=== PATIENT | male | born 1990 | race Caucasian/White ===

== ENCOUNTER 2022-09-01 08:04 | Emergency (ER) | payer MEDICAID, SELFPAY ==
[2022-09-01 08:08] VITALS: BP 145/89; PULSE 83; RESP 14; TEMP 36.7; O2SAT 96
--- NOTE | 2022-09-01 08:28 | ED.GENADUL_ITS ---
Discharge Plan Disposition Patient Disposition: Home Discharge Details Clinical Impression: Herpes zoster conjunctivitis, left eye Primary Care Provider: Marek Woodruff ED Provider: Marek Kowalski Home Meds and New Rx's Prescriptions: Continued prednisone 20 mg Tablet 40 mg PO DAILY Rx Instructions: 5 days acyclovir 800 mg Tablet 800 mg PO DIRECTED Rx Instructions: 5x/day for 7 days amoxicillin 875 mg Tablet 875 mg PO BID Rx Instructions: 10 days Deep Sea Nasal 0.65 % Aerosol,Banner 1 spray INTRANASAL BID PRN mirtazapine 30 mg Tablet 30 mg PO DAILY ibuprofen 200 mg Tablet 600 mg PO BID PRN acetaminophen 325 mg Tablet 650 mg PO BID PRN methadone 10 mg/mL Syringe 150 mg PO DAILY Discharge Instructions Instructions: Shingles (ED) Additional Instructions: You are seen in the emergency department for your shingles infection. Please continue taking your medications as previously prescribed. An frame runner will call you in the morning to arrange for follow-up. You will need to be seen in the morning by [facility] for your zoster infection. Please return to the emergency department if you develop worsening pain or any fevers. Discharge Data Discharge Date/Time-TO BE ENTERED AT DEPARTURE: 09/01/22 09:24 Medical Decision Making This is an uncomfortable appearing but normothermic and not tachycardic 32-year-old male with left-sided facial zoster infection in a V1 distribution with ipsilateral left eye conjunctivitis. Patient is on appropriate outpatient therapy with acyclovir and prednisone. We will have health community services coordinator Gloria arrange for [facility] eye follow-up appointment in the morning. Patient has no Zelaya's sign to suggest ocular involvement and no clearly dendritic lesions. Patient has no history of immunocompromise and specifically denies history of HIV and AIDS suspicion for [place] Monreal syndrome is exceedingly low. Given no fevers no rash also I am not concerned for disseminated zoster. It certainly possible that the patient go on to develop herpes zoster ophthalmicus. Given pain with itching will treat with diphenhydramine and also single dose opiate with acetaminophen. Patient vitals are not consistent with SIRS criteria so did not order blood work nor check a lactate nor draw blood cultures. No vomiting nor diarrhea to suggest increased risk for acute intra-abdominal process. As result I do not feel that the patient requires laboratory evaluation. HPI General Date/Time Provider Initiated Documentation: 09/01/22 08:28 . HPI Narrative: This is a previously healthy incarcerated 32-year-old male with prior history of shingles arriving to the emergency department in setting of shingles involving the left side of his face. Patient notes that 1 week ago he had a headache. 3 days ago he felt as if he had a zit on his forehead and he popped it but it drained clear fluid. 2 days ago a nurse at his correctional facility started him on treatment for shingles with acyclovir and prednisone. Patient reports that he has had difficulty opening his left eye and painful burning sensation in his left eye this morning. He has been adherent with his acyclovir and prednisone. He also took acetaminophen this morning. He denies any history of immunocompromise any specifically denies HIV and AIDS. He does not wear contacts or glasses. He has not had any fevers nor any changes in his hearing. He denies chest pain abdominal pain dysuria and frequency. Related Data Home Medications Medication Instructions Recorded Confirmed acetaminophen 325 mg tablet 650 mg PO BID PRN 09/01/22 09/01/22 acyclovir 800 mg tablet 800 mg PO DIRECTED 09/01/22 09/01/22 amoxicillin 875 mg tablet 875 mg PO BID 09/01/22 09/01/22 ibuprofen 200 mg tablet 600 mg PO BID PRN 09/01/22 09/01/22 methadone 10 mg/mL oral syringe 150 mg PO DAILY 09/01/22 09/01/22 (FOR ORAL USE ONLY) mirtazapine 30 mg tablet 30 mg PO DAILY 09/01/22 09/01/22 prednisone 20 mg tablet 40 mg PO DAILY 09/01/22 09/01/22 sodium chloride 0.65 % nasal spray 1 spray intranasal BID PRN 09/01/22 09/01/22 aerosol (Deep Sea Nasal) Allergies Allergy/AdvReac Type Severity Reaction Status Date / Time No Known Allergies Allergy Unverified 09/01/22 08:18 General Stated Complaint: RashLesion CHERRI: 4 PFSH All Active Problems (Updated 09/01/22 @ 08:42 by Marek Kowalski MD) Herpes zoster conjunctivitis, left eye (Acute) Social History Smoking/Tobacco Use Status: Current every day Smoking risk assessment performed?: Yes Drug use: Never Exam Narrative Exam Narrative: General: Well-appearing in no acute distress speaking in complete sentences. Head: Normocephalic, atraumatic. Eye: Pupils equal, round reactive to light. Left eye with conjunctivitis. No afferent pupillary defect. Extraocular movements intact. Ear, nose, mouth, throat: Vesicular lesion primarily on the superior aspect of the left eyelid forehead and in V1 distribution. No Zelaya sign. No signs of [place] Monreal patient no vesicles within the external ear canal nor on the auricle. No intraoral lesions. On fluorescein stain exam patient had no signs of peritonitis and no due to dendrites. Neck: Trachea midline. Cardiovascular: Well-perfused distal extremities. Respiratory: Nonlabored respiration. Gastrointestinal: Nondistended abdomen. Musculoskeletal: No edema. Moving all 4 extremities spontaneously. Skin: Normal for age and race, grossly normal temperature and turgor. No acute rash. Neurologic: Alert and appropriate, no apparent acute deficits. Psychiatric: Mood and manner are appropriate. Grooming and personal hygiene are appropriate. Course Vital Signs Vital signs: Vital Signs Temperature 36.7 C 09/01/22 08:08 Pulse 83 09/01/22 08:08 Respiratory Rate 09/01/22 08:08 Blood Pressure 145/89 H 09/01/22 08:08 Pulse Oximetry 96 09/01/22 08:08 Temperature 36.7 C 09/01/22 08:08 Temperature Source Tympanic 09/01/22 08:08 Pulse 83 09/01/22 08:08 Respiratory Rate 14 09/01/22 08:08 Respiratory Effort Normal 09/01/22 08:14 Blood Pressure 145/89 H 09/01/22 08:08 Blood Pressure Position Sitting 09/01/22 08:08 Pulse Oximetry 96 09/01/22 08:08 Oxygen Delivery Method Room Air 09/01/22 08:08 Oxygen Flow Rate 0 09/01/22 08:08 Pain Level 10 09/01/22 08:08
[2022-09-01] MEDS: diphenhydrAMINE 25 MG CAP PO (08:56)
[2022-09-01] MEDS: Acetaminophen 500 MG TAB 1000 MG PO (08:56)
[2022-09-01] MEDS: oxyCODONE 5 MG TAB PO (08:57)
[2022-09-01] MEDS: Fluorescein STRIPS 100/BOX 1 MG OP (08:57)
[2022-09-01] MEDS: Tetracaine 0.5% 4 ML BTL (08:57)
--- NOTE | 2022-09-01 09:11 | NUR.NOTE ---
Nursing Note: Referral faxed to [facility] [place] [facility] for herpes zoster left eye/ FriSeptember 02 morning appt. [facility] #, RN #, and pt phone #.
--- NOTE | 2022-09-01 11:45 | NUR.NOTE ---
Nursing Note: Taty Santoro, mother on HIPPA form, stated pt called saying he was prescribed oxycodone and could not have that in the [facility]. He asked her to check into this. I told her that he was given 1 tab here in the ED and was continue the medications that he was already taking from the Center. She is going to check with him and possibly the nurse.
== END 2022-09-01 09:24 | disposition home or self-care (01) ==
LOC: ER 09:02
PROVIDERS: Emergency Provider Emergency Medicine; PCP Internal Medicine
DX: B02.31 Zoster conjunctivitis (principal)
CPT/HCPCS: 99283; 99284